=== PATIENT | female | born 1935 | race Two or more races ===

== ENCOUNTER 2017-12-21 08:58 | Outpatient (CLI) | payer OTHER | END 2017-12-21 09:04 | disposition home or self-care (01) | LOC: LAB 08:58 | DX: C50.012 Malignant neoplasm of nipple and areola, left female breast (principal); N60.81 Other benign mammary dysplasias of right breast; R97.0 Elevated carcinoembryonic antigen [CEA]; M81.0 Age-related osteoporosis without current pathological fracture; E55.9 Vitamin D deficiency, unspecified; E03.8 Other specified hypothyroidism; I10 Essential (primary) hypertension; E08.65 Diabetes mellitus due to underlying condition with hyperglycemia; J45.20 Mild intermittent asthma, uncomplicated; D50.8 Other iron deficiency anemias; D51.8 Other vitamin B12 deficiency anemias; R97.8 Other abnormal tumor markers; E78.4 Other hyperlipidemia ==

== ENCOUNTER 2017-12-29 09:17 | Outpatient (CLI) | payer OTHER | END 2017-12-29 09:26 | disposition home or self-care (01) | LOC: SONOGRAMA 09:17 | DX: Z01.419 Encounter for gynecological examination (general) (routine) without abnormal findings (principal); E10.9 Type 1 diabetes mellitus without complications; Z86.000 Personal history of in-situ neoplasm of breast; D25.1 Intramural leiomyoma of uterus ==

== ENCOUNTER 2018-01-31 07:56 | Outpatient (CLI) | payer OTHER | END 2018-01-31 08:10 | disposition home or self-care (01) | LOC: NUCLEAR 07:56 | DX: C50.012 Malignant neoplasm of nipple and areola, left female breast (principal); N60.81 Other benign mammary dysplasias of right breast; R97.0 Elevated carcinoembryonic antigen [CEA]; M81.0 Age-related osteoporosis without current pathological fracture; E78.4 Other hyperlipidemia; E55.9 Vitamin D deficiency, unspecified; E03.8 Other specified hypothyroidism; I10 Essential (primary) hypertension; E08.65 Diabetes mellitus due to underlying condition with hyperglycemia; J45.20 Mild intermittent asthma, uncomplicated | CPT/HCPCS: 78815; A9552 ==

== ENCOUNTER 2018-02-15 09:24 | Outpatient (CLI) | payer OTHER | END 2018-02-15 09:35 | disposition home or self-care (01) | LOC: RAD 09:24 | DX: M43.04 Spondylolysis, thoracic region (principal); M54.89 Other dorsalgia; M54.2 Cervicalgia ==

== ENCOUNTER 2018-03-22 08:21 | Outpatient (CLI) | payer OTHER | END 2018-03-22 08:31 | disposition home or self-care (01) | LOC: SONOGRAMA 08:21 | DX: N63.21 Unspecified lump in the left breast, upper outer quadrant (principal); C50.112 Malignant neoplasm of central portion of left female breast ==

== ENCOUNTER 2018-04-26 09:07 | Outpatient (CLI) | payer OTHER | END 2018-04-26 09:18 | disposition home or self-care (01) | LOC: LAB 09:07 | DX: C50.012 Malignant neoplasm of nipple and areola, left female breast (principal); N60.81 Other benign mammary dysplasias of right breast; R97.0 Elevated carcinoembryonic antigen [CEA]; M81.0 Age-related osteoporosis without current pathological fracture; E78.4 Other hyperlipidemia; E55.9 Vitamin D deficiency, unspecified; E03.8 Other specified hypothyroidism; I10 Essential (primary) hypertension; E08.65 Diabetes mellitus due to underlying condition with hyperglycemia; J45.20 Mild intermittent asthma, uncomplicated; D50.8 Other iron deficiency anemias; D51.8 Other vitamin B12 deficiency anemias; K90.89 Other intestinal malabsorption; R97.8 Other abnormal tumor markers ==

== ENCOUNTER 2018-05-17 09:45 | Outpatient (CLI) | payer OTHER | END 2018-05-17 16:56 | disposition home or self-care (01) | LOC: NUCLEAR 09:45 | DX: M81.0 Age-related osteoporosis without current pathological fracture (principal) ==

== ENCOUNTER 2018-06-19 08:41 | Outpatient (CLI) | payer OTHER | END 2018-06-19 08:46 | disposition home or self-care (01) | LOC: SONOGRAMA 08:41 | DX: D25.1 Intramural leiomyoma of uterus (principal) ==

== ENCOUNTER → 2018-08-07 09:19 | Outpatient (CLI) | payer OTHER | END | disposition home or self-care (01) | LOC: LAB 09:19 | DX: C50.012 Malignant neoplasm of nipple and areola, left female breast (principal); N60.81 Other benign mammary dysplasias of right breast; R97.0 Elevated carcinoembryonic antigen [CEA]; M81.0 Age-related osteoporosis without current pathological fracture; E55.9 Vitamin D deficiency, unspecified; E03.8 Other specified hypothyroidism; I10 Essential (primary) hypertension; E08.65 Diabetes mellitus due to underlying condition with hyperglycemia; J45.20 Mild intermittent asthma, uncomplicated; D50.8 Other iron deficiency anemias; D51.8 Other vitamin B12 deficiency anemias; E78.49 Other hyperlipidemia ==

== ENCOUNTER 2018-09-12 09:10 | Outpatient (CLI) | payer OTHER | END 2018-09-12 09:14 | disposition home or self-care (01) | LOC: MAMO-SONO 09:10 | DX: Z12.31 Encounter for screening mammogram for malignant neoplasm of breast (principal); Z87.898 Personal history of other specified conditions; C50.812 Malignant neoplasm of overlapping sites of left female breast ==

== ENCOUNTER 2018-11-19 09:09 | Outpatient (CLI) | payer OTHER | END 2018-11-19 09:15 | disposition home or self-care (01) | LOC: LAB 09:09 | DX: D50.8 Other iron deficiency anemias (principal); D51.8 Other vitamin B12 deficiency anemias; C50.812 Malignant neoplasm of overlapping sites of left female breast; I10 Essential (primary) hypertension; R97.0 Elevated carcinoembryonic antigen [CEA]; R97.8 Other abnormal tumor markers ==

== ENCOUNTER 2018-11-26 14:18 | Outpatient (CLI) | payer OTHER | END 2018-11-26 14:35 | disposition home or self-care (01) | LOC: RAD 501 14:18 | DX: M51.27 Other intervertebral disc displacement, lumbosacral region (principal) ==

== ENCOUNTER 2019-01-15 08:45 | Outpatient (CLI) | payer OTHER | END 2019-01-15 09:07 | disposition home or self-care (01) | LOC: MRI 08:45 | DX: M54.5 Low back pain (principal); M54.16 Radiculopathy, lumbar region | CPT/HCPCS: 72148 ==

== ENCOUNTER 2019-03-28 08:48 | Outpatient (CLI) | payer OTHER | END 2019-03-28 10:06 | disposition home or self-care (01) | LOC: LAB 08:48 | DX: E03.8 Other specified hypothyroidism (principal); C50.012 Malignant neoplasm of nipple and areola, left female breast; N60.81 Other benign mammary dysplasias of right breast; R97.0 Elevated carcinoembryonic antigen [CEA]; M81.0 Age-related osteoporosis without current pathological fracture; E78.49 Other hyperlipidemia; E55.9 Vitamin D deficiency, unspecified; I10 Essential (primary) hypertension; E08.65 Diabetes mellitus due to underlying condition with hyperglycemia; J45.20 Mild intermittent asthma, uncomplicated; R97.8 Other abnormal tumor markers ==

== ENCOUNTER 2019-06-27 08:44 | Outpatient (CLI) | payer OTHER | END 2019-06-27 08:49 | disposition home or self-care (01) | LOC: LAB 08:44 | DX: C50.012 Malignant neoplasm of nipple and areola, left female breast (principal); N60.81 Other benign mammary dysplasias of right breast; R97.0 Elevated carcinoembryonic antigen [CEA]; M81.0 Age-related osteoporosis without current pathological fracture; E78.49 Other hyperlipidemia; E55.9 Vitamin D deficiency, unspecified; E03.8 Other specified hypothyroidism; I10 Essential (primary) hypertension; E08.65 Diabetes mellitus due to underlying condition with hyperglycemia; J45.20 Mild intermittent asthma, uncomplicated; D50.8 Other iron deficiency anemias; D51.8 Other vitamin B12 deficiency anemias; R97.8 Other abnormal tumor markers; K90.89 Other intestinal malabsorption ==

== ENCOUNTER 2019-09-17 09:26 | Outpatient (CLI) | payer OTHER | END 2019-09-17 09:34 | disposition home or self-care (01) | LOC: MAMO-SONO 09:26 | DX: N60.81 Other benign mammary dysplasias of right breast (principal); R97.0 Elevated carcinoembryonic antigen [CEA]; C50.012 Malignant neoplasm of nipple and areola, left female breast; M81.0 Age-related osteoporosis without current pathological fracture; E78.49 Other hyperlipidemia; E55.9 Vitamin D deficiency, unspecified; E03.8 Other specified hypothyroidism; I10 Essential (primary) hypertension; E08.65 Diabetes mellitus due to underlying condition with hyperglycemia; J45.20 Mild intermittent asthma, uncomplicated ==

== ENCOUNTER → 2019-10-24 08:59 | Outpatient (CLI) | payer OTHER | END | disposition home or self-care (01) | LOC: LAB 08:59 | DX: C50.012 Malignant neoplasm of nipple and areola, left female breast (principal); N60.81 Other benign mammary dysplasias of right breast; R97.0 Elevated carcinoembryonic antigen [CEA]; M81.0 Age-related osteoporosis without current pathological fracture; E78.49 Other hyperlipidemia; E55.9 Vitamin D deficiency, unspecified; E03.8 Other specified hypothyroidism; I10 Essential (primary) hypertension; E08.65 Diabetes mellitus due to underlying condition with hyperglycemia; J45.20 Mild intermittent asthma, uncomplicated; D50.8 Other iron deficiency anemias; D51.8 Other vitamin B12 deficiency anemias; R97.8 Other abnormal tumor markers; K90.89 Other intestinal malabsorption ==

== ENCOUNTER 2020-07-20 12:06 | Outpatient (CLI) | payer OTHER | END 2020-07-20 12:27 | disposition home or self-care (01) | LOC: MAMO-SONO 12:06 | PROVIDERS: ATTEND Internal Medicine Hematology & Oncology | DX: C50.012 Malignant neoplasm of nipple and areola, left female breast (principal); Z12.31 Encounter for screening mammogram for malignant neoplasm of breast; N64.59 Other signs and symptoms in breast; N60.81 Other benign mammary dysplasias of right breast; R97.0 Elevated carcinoembryonic antigen [CEA]; M81.0 Age-related osteoporosis without current pathological fracture; E78.49 Other hyperlipidemia; E55.9 Vitamin D deficiency, unspecified; E03.8 Other specified hypothyroidism; I10 Essential (primary) hypertension; E08.65 Diabetes mellitus due to underlying condition with hyperglycemia; J45.20 Mild intermittent asthma, uncomplicated ==

== ENCOUNTER 2020-12-22 09:51 | Outpatient (CLI) | payer OTHER | END 2020-12-22 09:55 | disposition home or self-care (01) | LOC: NUCLEAR 09:51 | PROVIDERS: ATTEND Internal Medicine | DX: I82.403 Acute embolism and thrombosis of unspecified deep veins of lower extremity, bilateral (principal) ==

== ENCOUNTER 2021-01-28 10:29 | Outpatient (CLI) | payer OTHER | END 2021-01-28 10:40 | disposition home or self-care (01) | LOC: RAD 10:29 | PROVIDERS: ATTEND Internal Medicine | DX: M79.609 Pain in unspecified limb (principal); M79.669 Pain in unspecified lower leg ==

== ENCOUNTER 2021-07-29 07:52 | Outpatient (CLI) | payer OTHER | END 2021-07-29 08:02 | disposition home or self-care (01) | LOC: MAMO-SONO 07:52 | PROVIDERS: ATTEND Internal Medicine Hematology & Oncology | DX: R92.1 Mammographic calcification found on diagnostic imaging of breast (principal); Z12.31 Encounter for screening mammogram for malignant neoplasm of breast; I10 Essential (primary) hypertension; C50.012 Malignant neoplasm of nipple and areola, left female breast; N60.81 Other benign mammary dysplasias of right breast; R97.0 Elevated carcinoembryonic antigen [CEA]; M81.0 Age-related osteoporosis without current pathological fracture; E78.49 Other hyperlipidemia; E55.9 Vitamin D deficiency, unspecified; E03.8 Other specified hypothyroidism; E08.65 Diabetes mellitus due to underlying condition with hyperglycemia; J45.20 Mild intermittent asthma, uncomplicated ==

== ENCOUNTER 2022-06-09 08:58 | Outpatient (CLI) | payer OTHER | END 2022-06-09 09:03 | disposition home or self-care (01) | LOC: NUCLEAR 08:58 | PROVIDERS: ATTEND Internal Medicine Hematology & Oncology | DX: M81.0 Age-related osteoporosis without current pathological fracture (principal) ==

== ENCOUNTER 2023-06-06 11:25 | Emergency (ER) | payer OTHER ==
[~2023-06-06] VITALS: Ht 152.4 cm; Wt 51.7 kg
[2023-06-06] MEDS ORDERED: INSULIN GL100 UNIT/3 SUBCUTANEO (11:35)
[2023-06-06] MEDS ORDERED: WELLBUTRIN XL150 M1 PO (11:35)
[2023-06-06] MEDS ORDERED: COZAAR100 MG PO (11:35)
== END 2023-06-06 14:44 | disposition home or self-care (01) ==
LOC: ER 11:25
DX: S00.03XA Contusion of scalp, initial encounter (principal); W06.XXXA Fall from bed, initial encounter; Y93.89 Activity, other specified; Y92.013 Bedroom of single-family (private) house as the place of occurrence of the external cause; Y99.8 Other external cause status; Z91.018 Allergy to other foods; K11.5 Sialolithiasis; M50.322 Other cervical disc degeneration at C5-C6 level

== ENCOUNTER 2023-08-22 10:24 | Outpatient (CLI) | payer OTHER ==
[~2023-08-22 10:24] MED LIST: COZAAR100 MG PO; INSULIN GL100 UNIT/3 SUBCUTANEO; WELLBUTRIN XL150 M1 PO
== END 2023-08-22 10:31 | disposition home or self-care (01) ==
LOC: SONOGRAMA 10:24
PROVIDERS: ATTEND Internal Medicine Hematology & Oncology
DX: E04.2 Nontoxic multinodular goiter (principal); N63.11 Unspecified lump in the right breast, upper outer quadrant; C50.012 Malignant neoplasm of nipple and areola, left female breast; N60.81 Other benign mammary dysplasias of right breast; R97.0 Elevated carcinoembryonic antigen [CEA]; M81.0 Age-related osteoporosis without current pathological fracture; E78.5 Hyperlipidemia, unspecified; E55.9 Vitamin D deficiency, unspecified; E03.9 Hypothyroidism, unspecified; I10 Essential (primary) hypertension; E08.65 Diabetes mellitus due to underlying condition with hyperglycemia; J45.20 Mild intermittent asthma, uncomplicated; Z91.018 Allergy to other foods

== ENCOUNTER 2023-09-05 09:50 | Outpatient (CLI) | payer OTHER | END 2023-09-05 09:56 | disposition home or self-care (01) | LOC: MAMO-SONO 09:50 | PROVIDERS: ATTEND Internal Medicine Hematology & Oncology | DX: Z12.31 Encounter for screening mammogram for malignant neoplasm of breast (principal); N63.0 Unspecified lump in unspecified breast; N64.4 Mastodynia ==

== ENCOUNTER 2024-09-10 09:05 | Outpatient (CLI) | payer OTHER | END 2024-09-10 09:25 | disposition home or self-care (01) | LOC: MAMO-SONO 09:05 | PROVIDERS: ATTEND Internal Medicine Hematology & Oncology | DX: N64.4 Mastodynia (principal); N63.0 Unspecified lump in unspecified breast; N63.11 Unspecified lump in the right breast, upper outer quadrant; C50.012 Malignant neoplasm of nipple and areola, left female breast; N60.81 Other benign mammary dysplasias of right breast; R97.0 Elevated carcinoembryonic antigen [CEA]; M81.0 Age-related osteoporosis without current pathological fracture; E78.5 Hyperlipidemia, unspecified; E55.9 Vitamin D deficiency, unspecified; E03.9 Hypothyroidism, unspecified; I10 Essential (primary) hypertension; E08.65 Diabetes mellitus due to underlying condition with hyperglycemia; J45.20 Mild intermittent asthma, uncomplicated; Z12.31 Encounter for screening mammogram for malignant neoplasm of breast ==

== ENCOUNTER 2025-01-07 08:21 | Outpatient (CLI) | payer OTHER | END 2025-01-07 08:24 | disposition home or self-care (01) | LOC: SONOGRAMA 08:21 | PROVIDERS: ATTEND Internal Medicine Hematology & Oncology | DX: R97.0 Elevated carcinoembryonic antigen [CEA] (principal); Z85.3 Personal history of malignant neoplasm of breast; E55.9 Vitamin D deficiency, unspecified; E78.5 Hyperlipidemia, unspecified; E08.65 Diabetes mellitus due to underlying condition with hyperglycemia; J45.20 Mild intermittent asthma, uncomplicated; I10 Essential (primary) hypertension ==

== ENCOUNTER 2025-01-28 12:12 | Outpatient (CLI) | payer OTHER | END 2025-01-28 12:15 | disposition home or self-care (01) | LOC: NUCLEAR 12:12 | PROVIDERS: ATTEND Internal Medicine Hematology & Oncology | DX: M81.0 Age-related osteoporosis without current pathological fracture (principal) ==

== ENCOUNTER 2025-09-23 09:46 | Outpatient (CLI) | payer OTHER | END 2025-09-23 09:47 | disposition home or self-care (01) | LOC: MAMO-SONO 09:46 | PROVIDERS: ATTEND Internal Medicine Hematology & Oncology | DX: C50.012 Malignant neoplasm of nipple and areola, left female breast (principal); N63.11 Unspecified lump in the right breast, upper outer quadrant; N60.81 Other benign mammary dysplasias of right breast; Z12.31 Encounter for screening mammogram for malignant neoplasm of breast; R97.0 Elevated carcinoembryonic antigen [CEA]; M81.0 Age-related osteoporosis without current pathological fracture; E78.5 Hyperlipidemia, unspecified; E55.9 Vitamin D deficiency, unspecified; E03.9 Hypothyroidism, unspecified; I10 Essential (primary) hypertension; E08.65 Diabetes mellitus due to underlying condition with hyperglycemia; J45.20 Mild intermittent asthma, uncomplicated ==